=== PATIENT | male | born 1940 | race Caucasian/White ===

== ENCOUNTER → 2018-07-03 11:38 | Outpatient (CLI) | payer MEDICARE, OTHER, SELFPAY ==
[2018-07-03 11:57] LABS: Bacteria Urine None Seen; RBC Urine None Seen (0-5/HPF); WBC Urine None Seen (0-5/HPF)
[2018-07-03 12:22] LABS: Add Manual Diff / Slide Review NO; Basophils Percent Auto 3.1 % (0-2); Eosinophils Percent Auto 3.3 % (2-4); Hematocrit 41.2 % (41-53); Hemoglobin 14.4 g/dL (13.5-17.5); Lymphocytes Percent Auto 27.1 % (25-40); Mean Corpuscular HGB Conc 34.9 % (30-36); Mean Corpuscular Hemoglobin 32.9 PG (26-34); Mean Corpuscular Volume 94.4 fL (80-100); Monocytes Percent Auto 10.3 % (3-14); Neutrophils Absolute Auto 2900 /uL (3000-5900); Neutrophils Percent Auto 56.2 % (50-75); Platelet Count 258 X10^3/uL (150-400); Red Blood Cell Count 4.37 X10^6/uL (4.5-5.9); Red Cell Distribution Width 14.4 % (11.6-14.8); White Blood Cell Count 5.1 X10^3/uL (4.5-11.0)
[2018-07-03 12:36] LABS: Appearance Urine UA CLEAR; Bilirubin Urine UA NEGATIVE (NEGATIVE); Color Urine UA YELLOW; Creatinine Urine Random 52.7 mg/dL; Glucose Urine UA NEGATIVE (Normal); Ketones Urine UA NEGATIVE (NEGATIVE); Leukocyte Esterase Urine UA NEGATIVE (NEGATIVE); Nitrite Urine UA Negative (Negative); Occult Blood Urine UA NEGATIVE (Negative); Protein (Total) Urine Random 17 mg/dL (0-12); Protein Creatinine Ratio Urine 0.32 GRAM/24H; Protein Urine UA NEGATIVE (Negative); Urobilinogen Urine UA 0.2 E.U./dL (0.2); pH Urine UA 7.5 (4.5-8.0)
[2018-07-03 12:37] LABS: HEMOLYSIS < 15 (0-50); Iron 93 ug/dL (49-181)
[2018-07-03 12:41] LABS: Alanine Aminotransferase 29 IU/L (21-72); Albumin 4.2 g/dL (3.5-5.0); Albumin Globulin Ratio 1.4 (1.0-2.8); Alkaline Phosphatase 57 U/L (38-126); Aspartate Aminotransferase 29 IU/L (17-59); BUN Creatinine Ratio 19.2 (6-22); Bilirubin Total 0.8 mg/dL (0.2-1.3); Blood Urea Nitrogen 25 mg/dL (9-20); Calcium 9.5 mg/dL (8.4-10.2); Carbon Dioxide 30 mmol/L (22-32); Chloride 98 mmol/L (98-107); Estimated Glomerular Filt Rate 53.4 mL/min (>60); Globulin 2.9 g/dL (1.7-4.1); Glucose 98 mg/dL (80-110); HEMOLYSIS < 15 (0-50); Magnesium 1.9 mg/dL (1.6-2.3); Phosphorous 3.7 mg/dL (2.3-3.7); Potassium 4.7 mmol/L (3.4-5.1); Sodium 136 mmol/L (137-145); Total Protein 7.1 g/dL (6.3-8.2); Uric Acid 4.6 mg/dL (3.5-8.5)
[2018-07-03 12:50] LABS: Percent Iron Saturation 36 % (20-50); Total Iron Binding Capacity 255 ug/dL (261-462); Transferrin 210 mg/dL (206-381)
[2018-07-03 12:57] LABS: Culture Indicated Urine Cult Not Indicated; Squamous Epithelial Cell Urine 0-1 /HPF
== END ==
PROVIDERS: Visit Provider Internal Medicine Gastroenterology
DX: N18.3 Chronic kidney disease, stage 3 (moderate) (principal); D64.9 Anemia, unspecified; N39.0 Urinary tract infection, site not specified; R80.9 Proteinuria, unspecified; E55.9 Vitamin D deficiency, unspecified
CPT/HCPCS: 36415; 80053; 81001; 82306; 82570; 82728; 83540; 83550; 83735; 84100; 84156; 84550; 85025

== ENCOUNTER → 2018-07-21 10:23 | Outpatient (CLI) | payer MEDICARE, OTHER, SELFPAY ==
[2018-07-21 11:27] LABS: Add Manual Diff / Slide Review NO; Basophils Percent Auto 0.5 % (0-2); Eosinophils Percent Auto 3.3 % (2-4); Hematocrit 43.7 % (41-53); Lymphocytes Percent Auto 30.6 % (25-40); Mean Corpuscular HGB Conc 34.4 % (30-36); Mean Corpuscular Hemoglobin 32.9 PG (26-34); Mean Corpuscular Volume 95.6 fL (80-100); Monocytes Percent Auto 9.4 % (3-14); Neutrophils Absolute Auto 3200 /uL (3000-5900); Neutrophils Percent Auto 56.2 % (50-75); Platelet Count 274 X10^3/uL (150-400); Red Blood Cell Count 4.57 X10^6/uL (4.5-5.9); Red Cell Distribution Width 13.9 % (11.6-14.8); White Blood Cell Count 5.7 X10^3/uL (4.5-11.0)
[2018-07-21 12:14] LABS: Alanine Aminotransferase 31 IU/L (21-72); Albumin 4.2 g/dL (3.5-5.0); Albumin Globulin Ratio 1.5 (1.0-2.8); Alkaline Phosphatase 63 U/L (38-126); Aspartate Aminotransferase 31 IU/L (17-59); Bilirubin Total 0.5 mg/dL (0.2-1.3); Blood Urea Nitrogen 18 mg/dL (9-20); Calcium 9.5 mg/dL (8.4-10.2); Carbon Dioxide 31 mmol/L (22-32); Chloride 99 mmol/L (98-107); Cholesterol 161 mg/dL (140-199); Estimated Glomerular Filt Rate 58.6 mL/min (>60); Globulin 2.8 g/dL (1.7-4.1); Glucose 105 mg/dL (80-110); HDL Cholesterol 72 mg/dL (40-60); HEMOLYSIS < 15 (0-50); LDL Cholesterol Calculated 74 mg/dL (<100); Potassium 5.1 mmol/L (3.4-5.1); Sodium 139 mmol/L (137-145); Triglycerides 74 mg/dL (35-150)
[2018-07-21 12:41] LABS: Prostate Specific Antigen Scrn 0.582 ng/mL (0.1-4.0)
== END ==
PROVIDERS: Visit Provider Internal Medicine
DX: M10.00 Idiopathic gout, unspecified site (principal); I10 Essential (primary) hypertension; E78.00 Pure hypercholesterolemia, unspecified; Z12.5 Encounter for screening for malignant neoplasm of prostate
CPT/HCPCS: 36415; 80053; 80061; 85025; G0103

== ENCOUNTER 2022-03-24 08:29 | Emergency (ER) | payer MEDICARE, OTHER, SELFPAY ==
[2022-03-24] VITALS (8 sets, daily range): BP systolic 158–176; BP diastolic 83–92; PULSE 57–69; RESP 18; TEMP 36.4; O2SAT 91–99; BMI 27.6
--- NOTE | 2022-03-24 08:46 | ED_ITS ---
HPI - General Adult General Chief complaint: Trauma Stated complaint: fall of ladder Time Seen by Provider: 03/24/22 08:35 Source: patient Mode of arrival: Ambulatory History of Present Illness HPI narrative: Patient is an 81-year-old male. Is on Xarelto here for evaluation of injuries that he sustained when he fell 6 ft off of a ladder yesterday. He states that he fell backwards. He landed on his back. He did not hit his head. No loss of conscious. Has no neck pain. He landed on a round rock on his left flank. Has not had any blood in his urine since then. No bruising. He reports no extremity discomfort. He [place] come in last [place] came to the emergency department he would be stuck your overnight. He did take some ibuprofen without any improvement. He states that the discomfort happens when he twists at his waist. It does not hurt when he touches the area. If he moves slowly he says that it does not cause any discomfort. No vomiting. Related Data Home Medications Medication Instructions Recorded Confirmed ASPIRIN (Aspirin EC) 81 mg PO Q DAY #0 08/29/12 atorvastatin 10 mg tablet (Lipitor) 10 mg PO HS #0 08/29/12 amlodipine 5 mg tablet (Norvasc) 5 mg PO QDAY #0 07/23/16 rivaroxaban 20 mg tablet (Xarelto) 20 mg PO QDAY #0 tab 07/23/16 Review of Systems Constitutional Constitutional: Denies fever(s) Cardiovascular Cardiovascular: Denies chest pain and Denies dyspnea Respiratory Respiratory: Denies dyspnea Gastrointestinal Gastrointestinal: Denies abdominal pain, Denies change in bowel habits, Denies nausea and Denies vomiting Genitourinary Genitourinary: Denies dysuria Musculoskeletal Musculoskeletal: Reports as per HPI Integumentary/Breasts Skin/Breast: Reports system reviewed and no additional complaints, except as documented Neurologic Neurologic: Reports system reviewed and no additional complaints, except as documented Hematologic/Lymphatic On Anticoagulants: Yes Patient History Medical History Multiple contusions TIA (transient ischemic attack) Social History Smoking Status: Never smoker Smoking Status: Never smoker Substance Use Type: does not use Exam Initial Vital Signs Initial Vital Signs: Vital Signs Temperature 97.6 F 03/24/22 08:30 Pulse Rate 67 03/24/22 08:30 Respiratory Rate 18 03/24/22 08:30 Blood Pressure 176/92 H 03/24/22 08:30 Pulse Oximetry 98 03/24/22 08:30 Const General: cooperative and healthy appearing HENKS Head: normal to inspection and normocephalic Resp Effort & Inspection: normal respiratory effort Auscultation: clear to auscultation bilaterally Cardio Rate: regular rate Rhythm: regular rhythm GI Inspection: non-distended Palpation: soft and No tender Back/Spine/Pelvis Cervical Spine: No cervical muscular tenderness and No cervical spinal tenderne ss Thoracic/Lumbar Spine: No thoracic spinal tenderness and No lumbar spinal tenderness Other: no CVA tenderness Skin General: no rashes or lesions noted Neuro General: patient alert, patient awake and moves all extremities Speech: speech normal Gait: normal gait Extrem General: normal to inspection and capillary refill normal Psych Appearance: grossly normal and well kempt Course Orders Ordered: ED Orders 03/24/22 08:47 CT abdomen pelvis w con Stat 03/24/22 08:50 Complete Blood Count AUTO DIFF Stat Comprehensive Metabolic Panel Stat Lipase Stat 03/24/22 10:40 Urine Culture Stat Urine Microscopic Stat Vital Signs Vital signs: Vital Signs - 8 hr 03/24/22 08:30 Temperature 97.6 F Pulse Rate 67 Respiratory Rate 18 Blood Pressure 176/92 H Pulse Oximetry 98 Medical Decision Making Lab Data Lab results reviewed: Yes I reviewed the patient's lab results. Result diagrams: 03/24/22 08:50 03/24/22 08:50 Labs: Lab Results 03/24/22 03/24/22 Range/Units 08:50 08:50 WBC 5.7 (4.5-11.0) X10^3/uL RBC 4.61 (4.5-5.9) X10^6/uL Hgb 15.0 (13.5-17.5) g/dL Hct 43.0 (41-53) % MCV 93.1 (80-100) fL MCH 32.4 (26-34) PG MCHC 34.8 (30-36) % RDW 14.2 (11.6-14.8) % Plt Count 264 (150-400) X10^3/uL Neut % (Auto) 63.7 (50-75) % Lymph % (Auto) 22.2 L (25-40) % Mobile % (Auto) 9.1 (3-14) % Eos % (Auto) 4.1 H (2-4) % Baso % (Auto) 0.9 (0-2) % Neut # (Auto) 3600 (8227-3193) /uL Lymph # (Auto) 1300 (1316-2448) /uL Mobile # (Auto) 500 (0-900) /uL Eos # (Auto) 200 (0-450) /uL Baso # (Auto) 100 (0-100) /uL Sodium 133 L (137-145) mmol/L Potassium 4.1 (3.4-5.1) mmol/L Chloride 100 (98-107) mmol/L Carbon Dioxide 28 (22-32) mmol/L BUN 18 (9-20) mg/dL Creatinine 1.24 (0.66-1.25) mg/dL Estimated GFR 58 L (>60) mL/min BUN/Creatinine Ratio 14.5 (6-22) Glucose 135 H (80-110) mg/dL Calcium 9.5 (8.4-10.2) mg/dL Total Bilirubin 0.7 (0.2-1.3) mg/dL AST 34 (17-59) IU/L ALT 23 (<50) IU/L Alkaline Phosphatase 67 (38-126) U/L Total Protein 8.1 (6.3-8.2) g/dL Albumin 4.6 (3.5-5.0) g/dL Globulin 3.5 (1.7-4.1) g/dL Albumin/Globulin Ratio 1.3 (1.0-2.8) Lipase 100 (23-300) U/L Urine Dip Bedside Urine Glucose Negative Bedside Urine Bilirubin - Negative Bedside Urine Ketone - Negative Urine Specific [place] 1.010 Bedside Urine Occult Blood - Negative Bedside Urine pH 7.0 Bedside Urine Protein +++ 300 Bedside Urine Urobilinogen - Negative Bedside Urine Nitrite - Negative Bedside Urine Leukocytes - Negative Esterase Point of care testing: Urine Dip Bedside Urine Glucose Negative Bedside Urine Bilirubin - Negative Bedside Urine Ketone - Negative Urine Specific [place] 1.010 Bedside Urine Occult Blood - Negative Bedside Urine pH 7.0 Bedside Urine Protein +++ 300 Bedside Urine Urobilinogen - Negative Bedside Urine Nitrite - Negative Bedside Urine Leukocytes - Negative Esterase Imaging Data CT scan - abdomen/pelvis: Radiologist's Impression: [address] [address] [address] Scan Report Signed Patient: Amari Jiménez MR#: [id number] : 1940 Acct:[id number] Age/Sex: 81 / M Date of Service: 03/24/22 Loc: ED Accession Number: [id number] ?? Procedure: CT abdomen pelvis w con Ordering Provider: Gilberto Roberson D.O. PROCEDURE:? CT ABDOMEN PELVIS W CON ? INDICATIONS:? fall from ladder with L flank pain ? TECHNIQUE:? After the administration of intravenous contrast, axial sections acquired from the lung bases to the pubic symphysis.? Coronal and sagittal reformats were performed.? For radiation dose reduction, the following was used:? automated exposure control, adjustment of mA and/or kV according to patient size.? ? COMPARISON:? None. ? FINDINGS:? Image quality:? Excellent.? ? Lung bases:? Unremarkable. Heart:? No significant findings. ? ABDOMEN: Liver:? No focal mass.? Mildly nodular hepatic contour. Gallbladder:? Unremarkable.? ? Biliary ducts:? Unremarkable.? ? Pancreas:? Unremarkable.? ? Spleen:? Multiple calcifications within the spleen which is normal in size. Adrenal Glands:? Unremarkable.? ? Kidneys and Ureters:? Unremarkable.? ? ? Stomach and Bowel:? Stomach, small bowel loops, and colon are unremarkable.? Diverticulosis of the descending and sigmoid colon.? No evidence of acute di verticulitis. ?Appendix is not seen.? No evidence of appendicitis. Peritoneum:? No abnormal intraperitoneal fluid.? No free air.? ? Ventral Wall: ? No hernias.? Abdominal Nodes:? No retroperitoneal or mesenteric adenopathy by size criteria.? Vessels:? IVC is within normal limits.? Mild ectasia of the infrarenal aorta measuring 27 mm. ? PELVIS: Pelvic Organs:? Unremarkable.? ? Bladder:? Mild asymmetrical thickening of the anterior urinary bladder. Pelvic Nodes: No enlarged lymph nodes.? Miscellaneous: No hernias are seen. ? ? ? Bones:? Multilevel degenerative disc and facet disease.? Mild chronic L1 compression fracture. ? ? IMPRESSION:? 1. Urinary bladder thickening as described above.? Findings may indicate cystitis.? Correlation with urinalysis recommended.? Nonemergent cystoscopy is recommended to exclude underlying neoplasm, given the eccentric thickening. 2. Findings suggestive of cirrhosis. 3. Remote granulomatous disease. 4. Appendix not seen.? No evidence of appendicitis. 5. Mild infrarenal aortic ectasia.? ? ? Dictated by: Natalia Michel M.D. on 03/24/2022 at 9:33 ? ? Approved by: Natalia Michel M.D. on 03/24/2022 at 9:36? MDM Narrative Medical decision making narrative: Labs are unremarkable. CT scan shows no acute intra-abdominal pathology nor any lower rib fractures on the left. There is no bruising on the skin. It does appear to be a positional issue that he is having. I do suspect musculos keletal. No other injuries reported from the event or found on exam. Plan will be is to send home with muscle relaxers for him to use as needed. He was given return precautions. He expressed understanding and agreement. Discharge Plan Departure Patient Disposition: Home Clinical Impression: Abdominal wall pain in left flank Activity Restrictions/Additional Instructions: The CT scan and labs today are all very reassuring. There does not appear to be any injury to your ribs nor your organs in the abdomen. Continue all of your medications as directed. Return to the emergency department for any new or worsening symptoms. Prescriptions: No Action ASPIRIN (Aspirin EC) 81 mg PO Q DAY Qty: 0 0RF atorvastatin [Lipitor] 10 MG tablet 10 mg PO HS Qty: 0 0RF rivaroxaban [Xarelto] 20 MG tablet 20 mg PO QDAY Qty: 0 0RF amlodipine [Norvasc] 5 MG tablet 5 mg PO QDAY Qty: 0 0RF
--- NOTE | 2022-03-24 08:47 | DI.CT.S_ITS ---
PROCEDURE: CT ABDOMEN PELVIS W CON INDICATIONS: fall from ladder with L flank pain TECHNIQUE: After the administration of intravenous contrast, axial sections acquired from the lung bases to the pubic symphysis. Coronal and sagittal reformats were performed. For radiation dose reduction, the following was used: automated exposure control, adjustment of mA and/or kV according to patient size. COMPARISON: None. FINDINGS: Image quality: Excellent. Lung bases: Unremarkable. Heart: No significant findings. ABDOMEN: Liver: No focal mass. Mildly nodular hepatic contour. Gallbladder: Unremarkable. Biliary ducts: Unremarkable. Pancreas: Unremarkable. Spleen: Multiple calcifications within the spleen which is normal in size. Adrenal Glands: Unremarkable. Kidneys and Ureters: Unremarkable. Stomach and Bowel: Stomach, small bowel loops, and colon are unremarkable. Diverticulosis of the descending and sigmoid colon. No evidence of acute diverticulitis. Appendix is not seen. No evidence of appendicitis. Peritoneum: No abnormal intraperitoneal fluid. No free air. Ventral Wall: No hernias. Abdominal Nodes: No retroperitoneal or mesenteric adenopathy by size criteria. Vessels: IVC is within normal limits. Mild ectasia of the infrarenal aorta measuring 27 mm. PELVIS: Pelvic Organs: Unremarkable. Bladder: Mild asymmetrical thickening of the anterior urinary bladder. Pelvic Nodes: No enlarged lymph nodes. Miscellaneous: No hernias are seen. Bones: Multilevel degenerative disc and facet disease. Mild chronic L1 compression fracture. IMPRESSION: 1. Urinary bladder thickening as described above. Findings may indicate cystitis. Correlation with urinalysis recommended. Nonemergent cystoscopy is recommended to exclude underlying neoplasm, given the eccentric thickening. 2. Findings suggestive of cirrhosis. 3. Remote granulomatous disease. 4. Appendix not seen. No evidence of appendicitis. 5. Mild infrarenal aortic ectasia. Dictated by: Natalia Michel M.D. on 03/24/2022 at 9:33 Approved by: Natalia Michel M.D. on 03/24/2022 at 9:36
[2022-03-24 09:07] LABS: Add Manual Diff / Slide Review NO; Basophils Absolute Auto 100 /uL (0-100); Basophils Percent Auto 0.9 % (0-2); Eosinophils Absolute Auto 200 /uL (0-450); Eosinophils Percent Auto 4.1 % (2-4); Lymphocytes Absolute Auto 1300 /uL (1100-4500); Lymphocytes Percent Auto 22.2 % (25-40); Mean Corpuscular HGB Conc 34.8 % (30-36); Mean Corpuscular Hemoglobin 32.4 PG (26-34); Mean Corpuscular Volume 93.1 fL (80-100); Monocytes Absolute Auto 500 /uL (0-900); Monocytes Percent Auto 9.1 % (3-14); Neutrophils Absolute Auto 3600 /uL (1500-7000); Neutrophils Percent Auto 63.7 % (50-75); Platelet Count 264 X10^3/uL (150-400); Red Blood Cell Count 4.61 X10^6/uL (4.5-5.9); Red Cell Distribution Width 14.2 % (11.6-14.8); White Blood Cell Count 5.7 X10^3/uL (4.5-11.0)
[2022-03-24 09:14] LABS: Alanine Aminotransferase 23 IU/L (<50); Albumin 4.6 g/dL (3.5-5.0); Albumin Globulin Ratio 1.3 (1.0-2.8); Alkaline Phosphatase 67 U/L (38-126); Aspartate Aminotransferase 34 IU/L (17-59); BUN Creatinine Ratio 14.5 (6-22); Bilirubin Total 0.7 mg/dL (0.2-1.3); Blood Urea Nitrogen 18 mg/dL (9-20); Calcium 9.5 mg/dL (8.4-10.2); Carbon Dioxide 28 mmol/L (22-32); Chloride 100 mmol/L (98-107); Estimated Glomerular Filt Rate 58 mL/min (>60); Globulin 3.5 g/dL (1.7-4.1); Glucose 135 mg/dL (80-110); HEMOLYSIS < 15 (0-50); Lipase 100 U/L (23-300); Potassium 4.1 mmol/L (3.4-5.1); Sodium 133 mmol/L (137-145); Total Protein 8.1 g/dL (6.3-8.2)
[2022-03-24 10:59] LABS: Bacteria Urine None Seen; RBC Urine 0-1/HPF (0-5/HPF); WBC Urine 0-1/HPF (0-5/HPF)
[2022-03-24] MEDS: CYCLOBENZAPRINE 10 MG PREPACK 1 BOTTLE MISC (11:17)
== END 2022-03-24 11:18 | disposition home or self-care (01) ==
PROVIDERS: Emergency Provider Emergency Medicine
DX: R10.9 Unspecified abdominal pain (principal); W11.XXXA Fall on and from ladder, initial encounter
CPT/HCPCS: 36415; 74177; 80053; 81003; 81015; 83690; 85025; 87086; 99284; Q9967

== ENCOUNTER 2024-05-23 07:22 | Emergency (ER) | payer MEDICARE, OTHER, SELFPAY ==
[2024-05-23 07:41] VITALS: BP 192/87; PULSE 69; RESP 16; O2SAT 96; BMI 27.8
--- NOTE | 2024-05-23 07:41 | ED.GENADULT ---
HPI - General Adult General Chief complaint: Recheck/Abnormal Lab/Rx Stated complaint: Low sodium, PCP refer to E.D. Time Seen by Provider: 05/23/24 07:26 Source: patient Mode of arrival: Ambulatory Limitations: no limitations History of Present Illness HPI narrative: Patient is an 83-year-old male who 2 days ago labs drawn as an outpatient and was told by his primary doctor (who did not draw the labs) to come to the emergency department because of a sodium of 127. He states that [place]. He was having some swelling in his lower extremities. A neighbor of his who was an emergency physician told him that he needed compression stockings. He made an appointment with a local primary doctor in order to get a prescription for these. He stated that he had that appointment recently. They had some labs drawn. He stated that he got the results back and sent them to his primary doctor back home who called him and told him to come to the emergency department for further evaluation. Reports 1 episode of nausea recently. Also states he is felt somewhat lightheaded but otherwise is asymptomatic. Related Data Home Medications Medication Instructions Recorded Confirmed ASPIRIN (Aspirin EC) 81 mg PO Q DAY ##0 08/29/12 atorvastatin 10 mg tablet (Lipitor) 10 mg PO HS ##0 08/29/12 amlodipine 5 mg tablet (Norvasc) 5 mg PO QDAY ##0 07/23/16 rivaroxaban 20 mg tablet (Xarelto) 20 mg PO QDAY #0 tabs 07/23/16 Review of Systems Review of Systems Narrative: Dr Roberson Co-Sign Statement: I was available for consultation during this patient's emergency department visit. This chart is signed by myself for administrative purposes only. I did not have direct contact with this patient during this visit. They were seen independently by the APC. Patient History Medical History TIA (transient ischemic attack) Multiple contusions Social History Smoking Status: Never smoker Smoking Status: Never smoker Substance Use Type: does not use Exam Initial Vital Signs Initial Vital Signs: Vital Signs Pulse Rate 69 05/23/24 07:41 Respiratory Rate 16 05/23/24 07:41 Blood Pressure 192/87 H 05/23/24 07:41 Pulse Oximetry 96 05/23/24 07:41 Oxygen Delivery Method Room Air 05/23/24 07:41 Const General: cooperative, comfortable and No ill appearing [facility] Head: normal to inspection and normocephalic Resp Effort & Inspection: normal respiratory effort Cardio Rate: regular rate Skin General: no rashes or lesions noted Extrem General: normal to inspection Course Orders Ordered: ED Orders 05/23/24 07:35 Basic Metabolic Panel Stat Complete Blood Count AUTO DIFF Stat Sodium Chloride (Normal Saline 0.9%) 1,000 mls @ 1,000 mls/hr IV BOLUS ONE Stop: 05/23/24 08:40 Last Admin: 05/23/24 08:21 Dose: 1,000 mls/hr Vital Signs Vital signs: Vital Signs - 8 hr 05/23/24 07:41 05/23/24 07:44 Temperature 97.6 F Pulse Rate 69 Respiratory Rate 16 Blood Pressure 192/87 H Pulse Oximetry 96 Oxygen Delivery Method Room Air Medical Decision Making Lab Data 05/23/24 07:35 05/23/24 07:35 Labs: Lab Results 05/23/24 Range/Units 07:35 WBC 5.3 (4.5-11.0) X10^3/uL RBC 4.47 L (4.5-5.9) X10^6/uL Hgb 14.2 (13.5-17.5) g/dL Hct 41.7 (41-53) % MCV 93.4 (80-100) fL MCH 31.9 (26-34) PG MCHC 34.1 (30-36) % RDW 15.0 H (11.6-14.8) % Plt Count 324 (150-400) X10^3/uL Neut % (Auto) 42.7 L (50-75) % Lymph % (Auto) 39.7 (25-40) % [place] % (Auto) 11.7 (3-14) % Eos % (Auto) 4.6 H (2-4) % Baso % (Auto) 1.3 (0-2) % Neut # (Auto) 2200 (2785-7054) /uL Lymph # (Auto) 2100 (6056-1631) /uL [place] # (Auto) 600 (0-900) /uL Eos # (Auto) 200 (0-450) /uL Baso # (Auto) 100 (0-100) /uL Sodium 130 L (137-145) mmol/L Potassium 4.7 (3.4-5.1) mmol/L Chloride 101 (98-107) mmol/L Carbon Dioxide 23 (22-32) mmol/L BUN 22 H (9-20) mg/dL Creatinine 1.10 (0.66-1.25) mg/dL Estimated GFR > 60 (>60) mL/min BUN/Creatinine Ratio 20.0 (6-22) Glucose 113 H (80-110) mg/dL Calcium 9.0 (8.4-10.2) mg/dL MDM Narrative Medical decision making narrative: Sodium is 130 today. There was no indication for admission to the hospital. He states he was actually been on a low sodium diet because of his in trying to help his blood pressure. I recommended that for the next couple days that he avoid drinking just plain water and that for the next couple days he could increase his salt intake by a small amount but not make this permanent. Will discharge patient home with instructions to follow up with the primary provider. Discharge Plan Departure Patient Disposition: Home Clinical Impression: Hyponatremia Instructions: DI for Hyponatremia Activity Restrictions/Additional Instructions: Your sodium level was slightly low today but not at a level that would need an admission to the hospital. You can increase your salt intake over the next couple days but be sure that you are limited on how long that you do this has a high sodium diet can cause other issues such as worsening of your lower extremity swelling and also high blood pressure. Contact your primary care doctor for a follow-up. Prescriptions: No Action ASPIRIN (Aspirin EC) 81 mg PO Q DAY Qty: 0 atorvastatin [Lipitor] 10 MG tablet 10 mg PO HS Qty: 0 rivaroxaban [Xarelto] 20 MG tablet 20 mg PO QDAY Qty: 0 amlodipine [Norvasc] 5 MG tablet 5 mg PO QDAY Qty: 0 Stand Alone Forms: Patient Portal/API
[2024-05-23 07:42] LABS: Add Manual Diff / Slide Review NO; Basophils Absolute Auto 100 /uL (0-100); Basophils Percent Auto 1.3 % (0-2); Eosinophils Absolute Auto 200 /uL (0-450); Eosinophils Percent Auto 4.6 % (2-4); Hematocrit 41.7 % (41-53); Hemoglobin 14.2 g/dL (13.5-17.5); Lymphocytes Absolute Auto 2100 /uL (1100-4500); Lymphocytes Percent Auto 39.7 % (25-40); Mean Corpuscular HGB Conc 34.1 % (30-36); Mean Corpuscular Hemoglobin 31.9 PG (26-34); Mean Corpuscular Volume 93.4 fL (80-100); Monocytes Absolute Auto 600 /uL (0-900); Monocytes Percent Auto 11.7 % (3-14); Neutrophils Absolute Auto 2200 /uL (1500-7000); Neutrophils Percent Auto 42.7 % (50-75); Platelet Count 324 X10^3/uL (150-400); Red Blood Cell Count 4.47 X10^6/uL (4.5-5.9); White Blood Cell Count 5.3 X10^3/uL (4.5-11.0)
[2024-05-23 07:44] VITALS: TEMP 36.4
[2024-05-23 07:52] LABS: Blood Urea Nitrogen 22 mg/dL (9-20); Carbon Dioxide 23 mmol/L (22-32); Chloride 101 mmol/L (98-107); Estimated Glomerular Filt Rate > 60 mL/min (>60); Glucose 113 mg/dL (80-110); HEMOLYSIS 31 (0-50); Potassium 4.7 mmol/L (3.4-5.1); Sodium 130 mmol/L (137-145)
[2024-05-23] MEDS: SODIUM CHLORIDE 0.9% 1,000 ML 1000 ML IV (08:21)
[2024-05-23 09:08] VITALS: BP 160/84; PULSE 61; RESP 16; O2SAT 98
== END 2024-05-23 09:09 | disposition home or self-care (01) ==
PROVIDERS: Emergency Provider Emergency Medicine
DX: E87.1 Hypo-osmolality and hyponatremia (principal)
CPT/HCPCS: 36415; 80048; 85025; 99283; 99284

== ENCOUNTER → 2024-06-01 17:10 | Outpatient (CLI) | payer MEDICARE, OTHER, SELFPAY ==
--- NOTE | 2024-06-01 17:14 | DI.RAD.S_ITS ---
PROCEDURE: XR CHEST 2V INDICATIONS: SOB, orthopnea, cough TECHNIQUE: 2 views of the chest were acquired. COMPARISON: [facility], , CHEST 1 VIEW, 06/06/2015, 16:01. 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 Lungs and pleura: Lungs are clear. No pleural effusions or pneumothorax. Mediastinum: Mediastinal contours are normal. Heart size is normal. Bones and chest wall: No suspicious bony abnormalities. Prior left 8th rib fracture. Soft tissues appear unremarkable. IMPRESSION: No acute cardiopulmonary abnormality is seen. Dictated by: Edd Villa M.D. on 06/01/2024 at 18:52 Approved by: Edd Villa M.D. on 06/01/2024 at 18:53
[2024-06-01 18:26] LABS: NT-proBNP (BNP-Adult 18+) 1450 pg/mL (<450)
== END ==
PROVIDERS: PCP Internal Medicine; Referring Provider Physician Assistant Surgical; Visit Provider Physician Assistant Surgical
DX: R06.00 Dyspnea, unspecified (principal); R06.01 Orthopnea; M79.89 Other specified soft tissue disorders
CPT/HCPCS: 36415; 71046; 83880

== ENCOUNTER → 2024-06-04 11:39 | Outpatient (CLI) | payer MEDICARE, OTHER, SELFPAY ==
[2024-06-04 12:40] LABS: Appearance Urine UA CLEAR; Bilirubin Urine UA NEGATIVE (NEGATIVE); Color Urine UA YELLOW; Glucose Urine UA NEGATIVE (Negative); Ketones Urine UA NEGATIVE (NEGATIVE); Leukocyte Esterase Urine UA NEGATIVE (NEGATIVE); Nitrite Urine UA NEGATIVE (Negative); Occult Blood Urine UA NEGATIVE (Negative); Protein Urine UA 2+ (Negative); Urobilinogen Urine UA 0.2 E.U./dL (0.2); pH Urine UA 7.5 (4.5-8.0)
[2024-06-04 12:48] LABS: Bacteria Urine None Seen; Culture Indicated Urine Cult Not Indicated; RBC Urine None Seen (0-5/HPF); Squamous Epithelial Cell Urine None Seen (0-5/HPF); Urine Volume 10mL (spun); WBC Urine None Seen (0-5/HPF)
[2024-06-04 13:22] LABS: BUN Creatinine Ratio 16.8 (6-22); Blood Urea Nitrogen 20 mg/dL (9-20); Calcium 9.3 mg/dL (8.4-10.2); Carbon Dioxide 29 mmol/L (22-32); Chloride 98 mmol/L (98-107); Estimated Glomerular Filt Rate > 60 mL/min (>60); Glucose 109 mg/dL (80-110); HEMOLYSIS < 15 (0-50); Potassium 4.5 mmol/L (3.4-5.1); Sodium 134 mmol/L (137-145)
[2024-06-04 13:29] LABS: Free T4, Direct Thyroxine 1.17 ng/dL (0.78-2.19)
[2024-06-04 13:43] LABS: Thyroid Stimulating Hormone 2.15 uIU/mL (0.47-4.68)
[2024-06-04 14:39] LABS: Creatinine Urine Random 33.57 mg/dL; Sodium Urine Random 115 mmol/L (30-90)
[2024-06-08 15:08] LABS: Osmolality Urine 367 mOsmol/kg (.)
== END ==
PROVIDERS: PCP Internal Medicine; Referring Provider Internal Medicine Cardiovascular Disease; Visit Provider Internal Medicine Cardiovascular Disease
DX: E87.1 Hypo-osmolality and hyponatremia (principal)
CPT/HCPCS: 36415; 80048; 81001; 82043; 82570; 83935; 84300; 84439; 84443

== ENCOUNTER → 2024-06-12 10:14 | Outpatient (CLI) | payer MEDICARE, OTHER, SELFPAY ==
[2024-06-12 11:30] LABS: BUN Creatinine Ratio 19.4 (6-22); Blood Urea Nitrogen 24 mg/dL (9-20); Calcium 9.3 mg/dL (8.4-10.2); Carbon Dioxide 26 mmol/L (22-32); Chloride 100 mmol/L (98-107); Estimated Glomerular Filt Rate 57 mL/min (>60); Glucose 95 mg/dL (80-110); HEMOLYSIS < 15 (0-50); Sodium 131 mmol/L (137-145)
[2024-06-12 11:31] LABS: Potassium 5.7 mmol/L (3.4-5.1)
== END ==
PROVIDERS: PCP Internal Medicine; Referring Provider Internal Medicine Cardiovascular Disease; Visit Provider Internal Medicine Cardiovascular Disease
DX: I50.32 Chronic diastolic (congestive) heart failure (principal); E87.1 Hypo-osmolality and hyponatremia
CPT/HCPCS: 36415; 80048

== ENCOUNTER → 2024-06-15 07:24 | Outpatient (CLI) | payer MEDICARE, OTHER, SELFPAY ==
[2024-06-15 10:20] LABS: Blood Urea Nitrogen 23 mg/dL (9-20); Calcium 9.4 mg/dL (8.4-10.2); Carbon Dioxide 25 mmol/L (22-32); Chloride 101 mmol/L (98-107); Estimated Glomerular Filt Rate 55 mL/min (>60); Glucose 104 mg/dL (80-110); HEMOLYSIS < 15 (0-50); Potassium 5.2 mmol/L (3.4-5.1); Sodium 133 mmol/L (137-145)
== END ==
PROVIDERS: PCP Internal Medicine; Referring Provider Internal Medicine Cardiovascular Disease; Visit Provider Internal Medicine Cardiovascular Disease
DX: I50.32 Chronic diastolic (congestive) heart failure (principal); E87.1 Hypo-osmolality and hyponatremia
CPT/HCPCS: 36415; 80048

== ENCOUNTER → 2024-06-25 09:22 | Outpatient (CLI) | payer MEDICARE, OTHER, SELFPAY ==
[2024-06-25 10:27] LABS: BUN Creatinine Ratio 21.5 (6-22); Blood Urea Nitrogen 28 mg/dL (9-20); Calcium 9.6 mg/dL (8.4-10.2); Carbon Dioxide 26 mmol/L (22-32); Chloride 99 mmol/L (98-107); Estimated Glomerular Filt Rate 54 mL/min (>60); Glucose 130 mg/dL (80-110); HEMOLYSIS < 15 (0-50); Potassium 4.5 mmol/L (3.4-5.1); Sodium 131 mmol/L (137-145)
== END ==
PROVIDERS: PCP Internal Medicine; Referring Provider Internal Medicine Cardiovascular Disease; Visit Provider Internal Medicine Cardiovascular Disease
DX: I50.32 Chronic diastolic (congestive) heart failure (principal); E87.1 Hypo-osmolality and hyponatremia
CPT/HCPCS: 36415; 80048

== ENCOUNTER → 2024-07-15 12:04 | Outpatient (CLI) | payer MEDICARE, OTHER, SELFPAY ==
[2024-07-15 13:25] LABS: BUN Creatinine Ratio 17.7 (6-22); Blood Urea Nitrogen 25 mg/dL (9-20); Calcium 9.1 mg/dL (8.4-10.2); Carbon Dioxide 27 mmol/L (22-32); Chloride 98 mmol/L (98-107); Estimated Glomerular Filt Rate 49 mL/min (>60); Glucose 106 mg/dL (80-110); HEMOLYSIS < 15 (0-50); Potassium 5.2 mmol/L (3.4-5.1); Sodium 129 mmol/L (137-145)
== END ==
PROVIDERS: PCP Internal Medicine; Referring Provider Internal Medicine Cardiovascular Disease; Visit Provider Internal Medicine Cardiovascular Disease
DX: I50.32 Chronic diastolic (congestive) heart failure (principal)
CPT/HCPCS: 36415; 80048

== ENCOUNTER → 2024-07-21 15:55 | Outpatient (CLI) | payer MEDICARE, OTHER, SELFPAY ==
[2024-07-21 18:01] LABS: BUN Creatinine Ratio 15.6 (6-22); Blood Urea Nitrogen 22 mg/dL (9-20); Calcium 9.7 mg/dL (8.4-10.2); Carbon Dioxide 27 mmol/L (22-32); Chloride 99 mmol/L (98-107); Estimated Glomerular Filt Rate 49 mL/min (>60); Glucose 117 mg/dL (80-110); HEMOLYSIS < 15 (0-50); Sodium 133 mmol/L (137-145)
== END ==
PROVIDERS: PCP Internal Medicine; Referring Provider Internal Medicine Cardiovascular Disease; Visit Provider Internal Medicine Cardiovascular Disease
DX: E87.1 Hypo-osmolality and hyponatremia (principal); E87.5 Hyperkalemia
CPT/HCPCS: 36415; 80048

== ENCOUNTER → 2024-08-03 11:14 | Outpatient (CLI) | payer MEDICARE, OTHER, SELFPAY ==
[2024-08-03 12:48] LABS: BUN Creatinine Ratio 18.4 (6-22); Blood Urea Nitrogen 25 mg/dL (9-20); Calcium 9.4 mg/dL (8.4-10.2); Carbon Dioxide 25 mmol/L (22-32); Chloride 99 mmol/L (98-107); Estimated Glomerular Filt Rate 51 mL/min (>60); Glucose 80 mg/dL (80-110); HEMOLYSIS < 15 (0-50); Potassium 4.9 mmol/L (3.4-5.1); Sodium 132 mmol/L (137-145)
== END ==
PROVIDERS: PCP Internal Medicine; Referring Provider Internal Medicine Cardiovascular Disease; Visit Provider Internal Medicine Cardiovascular Disease
DX: E87.1 Hypo-osmolality and hyponatremia (principal); E87.5 Hyperkalemia
CPT/HCPCS: 36415; 80048

== ENCOUNTER → 2025-05-17 08:55 | Outpatient (CLI) | payer MEDICARE, OTHER, SELFPAY ==
[2025-05-17 10:56] LABS: Blood Urea Nitrogen 22 mg/dL (9-20); Calcium 9.0 mg/dL (8.4-10.2); Carbon Dioxide 24 mmol/L (22-32); Chloride 97 mmol/L (98-107); Estimated Glomerular Filt Rate > 60 mL/min (>60); Glucose 149 mg/dL (70-99); HEMOLYSIS < 15 (0-50); Potassium 4.5 mmol/L (3.4-5.1); Sodium 127 mmol/L (137-145)
== END ==
PROVIDERS: PCP Internal Medicine; Referring Provider Internal Medicine Cardiovascular Disease; Visit Provider Internal Medicine Cardiovascular Disease
DX: E78.1 Pure hyperglyceridemia (principal); E78.5 Hyperlipidemia, unspecified; I10 Essential (primary) hypertension
CPT/HCPCS: 36415; 80048

== ENCOUNTER → 2025-07-21 07:55 | Outpatient (CLI) | payer MEDICARE, OTHER, SELFPAY ==
[2025-07-21 08:58] LABS: Hemoglobin A1C% w Est Avg Glu 5.4 % (4.0-6.0)
[2025-07-21 09:15] LABS: Blood Urea Nitrogen 18 mg/dL (9-20); Calcium 9.5 mg/dL (8.4-10.2); Carbon Dioxide 27 mmol/L (22-32); Chloride 100 mmol/L (98-107); Cholesterol 142 mg/dL (140-199); Estimated Glomerular Filt Rate 58 mL/min (>60); Glucose 95 mg/dL (70-99); HDL Cholesterol 84 mg/dL (40-60); HEMOLYSIS < 15 (0-50); Magnesium 1.9 mg/dL (1.6-2.3); Potassium 5.0 mmol/L (3.4-5.1); Sodium 132 mmol/L (137-145); Triglycerides 73 mg/dL (35-150)
[2025-07-21 09:30] LABS: Free T4, Direct Thyroxine 1.12 ng/dL (0.78-2.19)
[2025-07-21 09:44] LABS: Thyroid Stimulating Hormone 1.89 uIU/mL (0.47-4.68)
== END ==
PROVIDERS: PCP Internal Medicine; Referring Provider Internal Medicine; Visit Provider Internal Medicine Cardiovascular Disease
DX: R73.9 Hyperglycemia, unspecified (principal); E87.1 Hypo-osmolality and hyponatremia; Z13.220 Encounter for screening for lipoid disorders
CPT/HCPCS: 36415; 80048; 80061; 83036; 83735; 84439; 84443